=== PATIENT | female | born 1945 | race Caucasian/White ===

== ENCOUNTER → 2020-05-04 15:50 | Outpatient (CLI) | payer OTHER, SELFPAY ==
--- NOTE | 2020-05-04 15:53 | DI.ECHO.S_ITS ---
[facility] +---------+ : : [address] : : : : [id number] : : : : Phone: [phone]+ Echocardiogram Report + + :Name: JOSE RUIZ Study Date: 05/04/2020 Height: 66 in : :[facility] Weight: 253 lb : : Gender: Female BSA: 2.2 m2 : :: 1945 Age: 74 yrs BP: 144/90 mmHg: :Reason For Study: aortic stenosis : :Ordering Physician: David CliftonPerformed By: Huma Santana : :Referring: DAVID CLIFTON N : + + Interpretation Summary The left ventricle is normal in size and wall thickness. The left ventricular ejection fraction is normal. There are no focal wall motion abnormalities. The right ventricle is normal in size and function. A bioprosthetic valve is visualized in aortic position. The morphology is consistent with a TAVR valve. The valve is functioning normally with no perivalvular leak. -Compared to the prior echocardiogram, patient is now post TAVR with a normal functioning valve. Procedure: A two-dimensional transthoracic echocardiogram with color flow and Doppler was performed. The study quality was technically adequate. Comparison is made with the echocardiogram of 02/08/2019. The heart rate ranged between 83-96 bpm during the study. Left Ventricle: The left ventricle is normal in size and wall thickness. The ejection fraction is estimated to be 55-60%. The left ventricular ejection fraction is normal. There are no focal wall motion abnormalities. Diastolic parameters suggest a relaxation abnormality of the left ventricle, consistent with probable normal filling pressures. Right Ventricle: The right ventricle is normal in size and function. Atria: Both atria are normal in size. There is no Doppler evidence for an interatrial shunt. Mitral Valve: The mitral valve leaflets are slightly calcified. There is mild mitral annular calcification. There is no mitral regurgitation noted. Aortic Valve: There is a bioprosthetic aortic valve. There is probable normal prosthetic aortic valve function. The peak aortic velocity is 1.95 m/sec. The aortic valve mean gradient is 8 mmHg. No aortic regurgitation is present. Tricuspid Valve: The tricuspid valve is normal in structure and function. There is a trace or physiologic amount of tricuspid regurgitation. Pulmonary artery pressures cannot be estimated because of the lack of a measurable TR jet velocity but the IVC suggests a CVP of around 3 mmHg. Pulmonic Valve: The pulmonic valve is not well visualized. There is no pulmonic valvular regurgitation. Great Vessels: The aortic root is not well visualized but is probably normal size. The ascending aorta is moderately enlarged. The IVC is of normal diameter and collapses greater than 50% with a sniff. This suggests a low right atrial pressure of 3 mm Hg. Pericardium/ Pleura There is no pericardial effusion. There is an anterior echo-free space consistent with a fat pad. MMode/2D Measurements & Calculations LVIDd: 5.1 cm LVOT diam: 2.3 cm LVIDs: 3.6 cm asc Aorta Diam: 4.4 cm FS: 30.4 % IVSd: 1.1 cm LVPWd: 1.1 cm LV carter. diameter/BSA (cm/m^2): 2.3 LV sys. diameter/BSA (cm/m^2): 1.6 LA A2 area: 16.4 cm2 RA long axis: 4.8 cm LA A4 area: 11.8 cm2 RA area: 15.1 cm2 LA length (vol): 4.5 cm RA vol: 40.4 ml LA vol: 36.6 ml RA : 18.3 ml/m2 LA vol index: 16.6 ml/m2 IVC diam: 1.9 cm RVD1 (basal): 3.7 cm TAPSE: 1.8 cm Doppler Measurements & Calculations Ao V2 max: 190.2 cm/sec LVOT Max Mani: 77.9 cm/sec Ao V2 mean: 132.9 cm/sec LV V1 max P.4 mmHg Ao max P.5 mmHg LV V1 VTI: 12.9 cm Ao mean P.9 mmHg PATRICIA(I,D): 1.6 cm2 Ao V2 VTI: 34.3 cm PATRICIA(V,D): 1.7 cm2 sev ratio: 0.38 PATRICIA indexed to BSA (cm^2/m^2): 0.72 MV E max mani: 53.9 cm/sec PA V2 max: 75.3 cm/sec MV A max mani: 86.9 cm/sec PA V2 mean: 53.2 cm/sec MV E/A: 0.62 PA mean P.3 mmHg Med Peak E' Mani: 5.0 cm/sec PA pr(Accel): 41.3 mmHg E/E' med: 10.9 Lat Peak E' Mani: 6.3 cm/sec E/E' lat: 8.6 E/e' average: 9.7 MV dec time: 0.35 sec SV(LVOT): 54.7 ml Electronically signed by: Miles angel [place] Physician:05/05/2020 04:57 PM
== END ==
PROVIDERS: PCP Physician Assistant Medical; Referring Provider Nurse Practitioner; Visit Provider Nurse Practitioner
DX: I35.0 Nonrheumatic aortic (valve) stenosis (principal); I77.89 Other specified disorders of arteries and arterioles; Z95.2 Presence of prosthetic heart valve
CPT/HCPCS: 93306

== ENCOUNTER 2021-10-06 10:15 | Outpatient (RCR) | payer OTHER, SELFPAY | END 2021-10-06 12:15 | LOC: CAR 10:15 | PROVIDERS: PCP Physician Assistant Medical; Referring Provider Hospitalist; Visit Provider Hospitalist | DX: Z95.5 Presence of coronary angioplasty implant and graft (principal) | CPT/HCPCS: 93798 ==

== ENCOUNTER 2022-04-26 13:15 | Emergency (ER) | payer OTHER, SELFPAY ==
[2022-04-26 13:40] VITALS: BP 133/81; PULSE 96; RESP 17; TEMP 36.1; O2SAT 97; BMI 41.3
--- NOTE | 2022-04-26 17:44 | DI.RAD.S_ITS ---
PROCEDURE: XR ACUTE ABDOMEN SERIES INDICATIONS: h/o constipation / abd pain TECHNIQUE: One view chest and two views of the abdomen were acquired. COMPARISON: None. FINDINGS: Surgical changes and devices: None. Chest: Lungs are clear. Heart size is normal. No pleural effusions. No pneumoperitoneum. Abdomen: Bowel gas pattern is nonspecific. No significant colonic fecal loading. No suspicious calcifications. Visualized solid organ contours appear normal. Bones: No suspicious bony lesions. IMPRESSION: Nonspecific bowel gas pattern without definite evidence of obstruction. If patient's symptoms persist or worsen, consider CT scan of the abdomen pelvis for additional evaluation. Dictated by: Olga Benavides MD, PhD on 04/26/2022 at 17:01 Approved by: Olga Benavides MD, PhD on 04/26/2022 at 17:01
[2022-04-26 18:15] LABS: Add Manual Diff / Slide Review NO; Basophils Absolute Auto 0 /uL (0-100); Basophils Percent Auto 0.6 % (0-2); Eosinophils Absolute Auto 200 /uL (0-450); Eosinophils Percent Auto 3.2 % (2-4); Hematocrit 39.3 % (36-46); Hemoglobin 13.2 g/dL (12.0-16.0); Lymphocytes Absolute Auto 1200 /uL (1100-4500); Lymphocytes Percent Auto 16.3 % (25-40); Mean Corpuscular HGB Conc 33.6 % (30-36); Mean Corpuscular Hemoglobin 27.8 PG (26-34); Mean Corpuscular Volume 82.6 fL (80-100); Monocytes Absolute Auto 500 /uL (0-900); Monocytes Percent Auto 7.1 % (3-14); Neutrophils Absolute Auto 5400 /uL (1500-7000); Neutrophils Percent Auto 72.8 % (50-75); Platelet Count 264 X10^3/uL (150-400); Red Blood Cell Count 4.76 X10^6/uL (4.0-5.2); Red Cell Distribution Width 15.9 % (11.6-14.8); White Blood Cell Count 7.4 X10^3/uL (4.5-11.0)
[2022-04-26 18:17] LABS: Alanine Aminotransferase 18 IU/L (<35); Albumin 4.3 g/dL (3.5-5.0); Alkaline Phosphatase 93 U/L (38-126); Aspartate Aminotransferase 22 IU/L (14-36); BUN Creatinine Ratio 15.4 (6-22); Bilirubin Total 0.4 mg/dL (0.2-1.3); Blood Urea Nitrogen 20 mg/dL (7-17); Calcium 9.2 mg/dL (8.4-10.2); Carbon Dioxide 24 mmol/L (22-32); Chloride 108 mmol/L (98-107); Estimated Glomerular Filt Rate 42 mL/min (>60); Globulin 4.3 g/dL (1.7-4.1); Glucose 107 mg/dL (80-110); HEMOLYSIS < 15 (0-50); Lipase 68 U/L (23-300); Potassium 4.2 mmol/L (3.4-5.1); Sodium 142 mmol/L (137-145); Total Protein 8.6 g/dL (6.3-8.2)
--- NOTE | 2022-04-26 18:43 | DI.CT.S_ITS ---
PROCEDURE: CT ABDOMEN PELVIS W CON INDICATIONS: IV contrast only/lower abdominal pain TECHNIQUE: After the administration of intravenous contrast, axial sections acquired from the lung bases to the pubic symphysis. Coronal and sagittal reformats were performed. For radiation dose reduction, the following was used: automated exposure control, adjustment of mA and/or kV according to patient size. COMPARISON: None. FINDINGS: Image quality: Excellent. Lung bases: Left base atelectasis. Heart: Aortic valve device partially seen. ABDOMEN: Liver: Unremarkable. Gallbladder: Unremarkable Biliary ducts: Unremarkable. Pancreas: Pancreatic neck 9 mm cystic lesion. Spleen: Unremarkable. Adrenal Glands: Unremarkable. Kidneys and Ureters: Multiple simple renal cysts. Subcentimeter lesions are too small to characterize. Left renal atrophy. There are also parapelvic cysts. Stomach and Bowel: Posterior gastric diverticulum. Peritoneum: No abnormal intraperitoneal fluid. No free air. Ventral Wall: Small fat containing umbilical hernia. Abdominal Nodes: No retroperitoneal or mesenteric adenopathy by size criteria. Vessels: Mild aortoiliac atherosclerotic calcifications. PELVIS: Pelvic Organs: Ill-defined prominent hypodensity in the cervical region (5/56). Bladder: Unremarkable. Pelvic Nodes: No enlarged lymph nodes. Miscellaneous: No hernias are seen. Bones: No acute or suspicious osseous abnormality. Lumbosacral spondylosis. Some chronic appearing fracture deformities of the ribs. IMPRESSION: No acute abdominopelvic pathology. Stool burden is average. No bowel obstruction. Pancreatic neck 9 mm cystic lesion. This could be followed with MRI pancreas protocol in 1-2 years at clinical discretion, given patient's age. Ill-defined prominent hypodensity in the cervical region. This could be correlated non emergently with clinical exam and/or ultrasound. Other incidental and probably chronic findings above. Dictated by: Denver Roman M.D. on 04/26/2022 at 19:06 Approved by: Denver Roman M.D. on 04/26/2022 at 19:15
--- NOTE | 2022-04-26 18:44 | ED.ABDPAIN ---
HPI - Abdominal Pain General Chief Complaint: Abdominal Pain Stated Complaint: Constipation Abd Pain Time Seen by Provider: 04/26/22 16:43 Source: patient Mode of arrival: Ambulatory History of Present Illness HPI narrative: Patient here for lower abdominal discomfort cramping sensation for the past 3 days without any bowel movement. Patient states no prior history of constipation. Been a long time since colonoscopy. Did try [id number] oral laxatives without resolution. No urinary complaints. No fever chills. No back pain. Did start gabapentin 1 week ago. Has been under lot of stress as well. No changes in diet Related Data Home Medications Medication Instructions Recorded Confirmed aspirin 81 mg tablet,delayed ##0 12/30/17 release atorvastatin 10 mg tablet (Lipitor) 5 mg OR Q DAY ##0 12/30/17 fluoxetine 40 mg capsule (Prozac) ##0 12/30/17 Allergies Allergy/AdvReac Type Severity Reaction Status Date / Time ondansetron Allergy Unknown Verified 04/26/22 13:40 [From ZOFRAN ( HYDROCHLORIDE)] Sulfa (Sulfonamide Allergy Unknown Verified 04/26/22 13:40 Antibiotics) [SULFA (SULFONAMIDE ANTIBIOTICS)] Review of Systems Review of Systems Narrative: GENERAL: Denies chills, fatigue, malaise, fever, sweats. HEENT: Denies sinus pain, ear pain, sore throat RESPIRATORY: Denies dyspnea, cough CARDIOVASCULAR: Denies chest pain, palpitations GASTROINTESTINAL: Denies nausea, vomiting, positive for constipation and abdominal pain : Denies dysuria, frequency, hematuria MUSCULOSKELETAL: denies muscle or bony pain SKIN: Denies rash, skin lesions NEUROLOGIC: Denies weakness, numbness ROS Unobtainable: All systems reviewed & are unremarkable except as noted in HPI and below Patient History Social History Smoking Status: Smoker, status unknown Smoking Status: Smoker, status unknown alcohol intake frequency: holidays/special occasions only Substance Use Type: does not use Exam Narrative Exam Narrative: GENERAL: in no distress, not toxic not dyspneic HEAD: Normocephalic. EYES: Pupils equal round No scleral icterus. ENT: Mucous membranes moist. NECK: Trachea midline. CARDIOVASCULAR: Regular rate and rhythm without murmurs RESPIRATORY: Clear to auscultation. Breath sounds equal bilaterally. No wheezes, rales, or rhonchi. GASTROINTESTINAL: Abdomen soft, mild lower bilateral abdominal/pelvic tenderness. No peritoneal signs. Bowel sounds present. EXTREMITIES: No gross deformities. BACK: No flank tenderness. NEURO: AOx4. SKIN: Warm and dry PSYCH: Not anxious, is cooperative Initial Vital Signs Initial Vital Signs: Vital Signs Temperature 97.0 F L 04/26/22 13:40 Pulse Rate 96 H 04/26/22 13:40 Respiratory Rate 17 04/26/22 13:40 Blood Pressure 133/81 04/26/22 13:40 Pulse Oximetry 97 04/26/22 13:40 Oxygen Delivery Method 04/26/22 13:40 Course Course Course Narrative: No new issues during course of stay Orders Ordered: ED Orders 04/26/22 17:44 XR acute abdomen series Stat 04/26/22 17:45 CBC Auto Diff [Complete Blood Count AUTO DIFF] Stat CMP [Comprehensive Metabolic Panel] Stat Lipase Stat 04/26/22 18:43 CT abdomen pelvis w con Stat Discontinued Medications Sodium Chloride (Normal Saline 0.9%) 1,000 mls @ 1,000 mls/hr IV BOLUS ONE Stop: 04/26/22 19:42 Last Admin: 04/26/22 19:45 Dose: 1,000 mls/hr Documented By: BILL Magnesium Citrate (Magnesium Citrate 300 Ml Solution) 300 ml PO NOW ONE Stop: 04/26/22 20:04 Polyethylene Glycol/Electrolytes ([id number]/Sod Sulf,Bicarb,Cl/Kcl 4,000 Ml Solution) 2,000 ml PO NOW ONE Stop: 04/26/22 20:36 Last Admin: 04/26/22 20:51 Dose: 2,000 ml Documented By: BILL Reevaluation(s) Reevaluation #1: Reviewed results with patient. She desires to take GoLYTELY home and treat for constipation. Reviewed images and results with her. She does understand needs outpatient follow-up MRI Time: 20:56 Vital Signs Vital signs: Vital Signs - 8 hr 04/26/22 13:40 Temperature 97.0 F L Pulse Rate 96 H Respiratory Rate 17 Blood Pressure 133/81 Pulse Oximetry 97 Oxygen Delivery Method Room Air MDM - Abdominal Pain Differential Diagnosis Differential diagnosis: Likely abdominal pain, acute appendicitis, calculus of kidney, constipation, diverticulitis, pancreatitis and small bowel obstruction Lab Data Result diagrams: 04/26/22 17:45 08/09/22 17:45 Labs: Lab Results 04/26/22 04/26/22 Range/Units 17:45 17:45 WBC 7.4 (4.5-11.0) X10^3/uL RBC 4.76 (4.0-5.2) X10^6/uL Hgb 13.2 (12.0-16.0) g/dL Hct 39.3 (36-46) % MCV 82.6 (80-100) fL MCH 27.8 (26-34) PG MCHC 33.6 (30-36) % RDW 15.9 H (11.6-14.8) % Plt Count 264 (150-400) X10^3/uL Neut % (Auto) 72.8 (50-75) % Lymph % (Auto) 16.3 L (25-40) % [place] % (Auto) 7.1 (3-14) % Eos % (Auto) 3.2 (2-4) % Baso % (Auto) 0.6 (0-2) % Neut # (Auto) 5400 (7873-8109) /uL Lymph # (Auto) 1200 (6209-8131) /uL [place] # (Auto) 500 (0-900) /uL Eos # (Auto) 200 (0-450) /uL Baso # (Auto) 0 (0-100) /uL Sodium 142 (137-145) mmol/L Potassium 4.2 (3.4-5.1) mmol/L Chloride 108 H (98-107) mmol/L Carbon Dioxide 24 (22-32) mmol/L BUN 20 H (7-17) mg/dL Creatinine 1.30 H (0.52-1.04) mg/dL Estimated GFR 42 L (>60) mL/min BUN/Creatinine Ratio 15.4 (6-22) Glucose 107 (80-110) mg/dL Calcium 9.2 (8.4-10.2) mg/dL Total Bilirubin 0.4 (0.2-1.3) mg/dL AST 22 (14-36) IU/L ALT 18 (<35) IU/L Alkaline Phosphatase 93 (38-126) U/L Total Protein 8.6 H (6.3-8.2) g/dL Albumin 4.3 (3.5-5.0) g/dL Globulin 4.3 H (1.7-4.1) g/dL Albumin/Globulin Ratio 1.0 (1.0-2.8) Lipase 68 (23-300) U/L Imaging Data CT scan - abdomen/pelvis: Radiologist's Impression: [address] [address] [address] Scan Report Signed Patient: Zoraida Flores MR#: [id number] : 1945 Acct:[id number] Age/Sex: 76 / F Date of Service: 04/26/22 Loc: ED Accession Number: [id number] ?? Procedure: CT abdomen pelvis w con Ordering Provider: Mik Hernandez MD PROCEDURE:? CT ABDOMEN PELVIS W CON ? INDICATIONS:? IV contrast only/lower abdominal pain ? TECHNIQUE:? After the administration of intravenous contrast, axial sections acquired from the lung bases to the pubic symphysis.? Coronal and sagittal reformats were performed.? For radiation dose reduction, the following was used:? automated exposure control, adjustment of mA and/or kV according to patient size.? ? COMPARISON:? None. ? FINDINGS:? Image quality:? Excellent.? ? Lung bases:? Left base atelectasis. Heart:? Aortic valve device partially seen. ? ABDOMEN: Liver:? Unremarkable.? ? Gallbladder:? Unremarkable Biliary ducts:? Unremarkable.? ? Pancreas:? Pancreatic neck 9 mm cystic lesion. Spleen:? Unremarkable.? ? Adrenal Glands:? Unremarkable.? ? Kidneys and Ureters:? Multiple simple renal cysts.? Subcentimeter lesions are too small to characterize.? Left renal atrophy.? There are also parapelvic cysts. ? Stomach and Bowel:? Posterior gastric diverticulum. Peritoneum:? No abnormal intraperitoneal fluid.? No free air.? ? Ventral Wall:? Small fat containing umbilical hernia. Abdominal Nodes:? No retroperitoneal or mesenteric adenopathy by size criteria.? Vessels:? Mild aortoiliac atherosclerotic calcifications. ? PELVIS: Pelvic Organs:? Ill-defined prominent hypodensity in the cervical region (). Bladder:? Unremarkable.? ? Pelvic Nodes: No enlarged lymph nodes.? Miscellaneous: No hernias are seen. ? ? ? Bones:? No acute or suspicious osseous abnormality.? Lumbosacral spondylosis.? Some chronic appearing fracture deformities of the ribs. ? ? IMPRESSION:? No acute abdominopelvic pathology.? Stool burden is average.? No bowel obstruction. ? Pancreatic neck 9 mm cystic lesion.? This could be followed with MRI pancreas protocol in 1-2 years at clinical discretion, given patient's age. ? Ill-defined prominent hypodensity in the cervical region.? This could be correlated non emergently with clinical exam and/or ultrasound.? ? Other incidental and probably chronic findings above.? ? Dictated by: Denver Roman M.D. on 04/26/2022 at 19:06 ? ? Approved by: Denver Roman M.D. on 04/26/2022 at 19:15 ? Abdominal x-ray: Radiologist's Impression: [address] [address] XRay Report Signed Patient: Zoraida Flores MR#: [id number] : 1945 Acct:[id number] Age/Sex: 76 / F Date of Service: 04/26/22 Loc: ED Accession Number: [id number] ?? Procedure: XR acute abdomen series Ordering Provider: Maude Moss D.O. PROCEDURE:? XR ACUTE ABDOMEN SERIES ? INDICATIONS:? h/o constipation / abd pain ? TECHNIQUE:? One view chest and two views of the abdomen were acquired.? ? COMPARISON:? None. ? FINDINGS:? ? Surgical changes and devices:? None.? ? Chest:? Lungs are clear.? Heart size is normal.? No pleural effusions.? No pneumoperitoneum.? ? Abdomen:? Bowel gas pattern is nonspecific.? No significant colonic fecal loading.? No suspicious calcifications.? Visualized solid organ contours appear normal.? ? Bones:? No suspicious bony lesions.? ? IMPRESSION:? Nonspecific bowel gas pattern without definite evidence of obstruction.? If patient's symptoms persist or worsen, consider CT scan of the abdomen pelvis for additional evaluation. ? ? Dictated by: Olga Benavides MD, PhD on 04/26/2022 at 17:01 ? ? Approved by: Olga Benavides MD, PhD on 04/26/2022 at 17:01 ? MDM Narrative Medical decision making narrative: Appropriate for discharge home. Exam and laboratory studies are reassuring. Patient understood to follow up with primary care for outpatient MRI of the pancreas. It is incidental finding. Likely constipation from recent stressors as well as medication changes including gabapentin. Discharge Plan Departure Patient Disposition: Home Clinical Impression: Constipation Instructions: DI for Constipation Activity Restrictions/Additional Instructions: Please use GoLYTELY as instructed by nurse daily for constipation. Please see your family doctor this week for scheduling outpatient MRI for your pancreas for the incidental finding we found today on CT scan. Keep well hydrated. May continue home medications. Return if worse if any questions or concerns. Prescriptions: No Action fluoxetine [Prozac] 40 MG capsule Qty: 0 atorvastatin [Lipitor] 10 MG tablet 5 mg OR Q DAY Qty: 0 aspirin 81 MG tablet,delayed release (DR/EC) Qty: 0 Referrals: Madison Rinaldi PA-C [Primary Care Provider] - Visit Report Forms: Patient Portal/API
[2022-04-26] MEDS: SODIUM CHLORIDE 0.9% 1,000 ML 1000 ML IV (19:45)
[2022-04-26] MEDS: PEG3350/SOD SULF,BICARB,CL/KCL 4,000 ML SOLUTION 2000 ML PO (20:51)
== END 2022-04-26 21:19 | disposition home or self-care (01) ==
PROVIDERS: Emergency Medicine; Emergency Provider Emergency Medicine; PCP Physician Assistant Medical
DX: K59.00 Constipation, unspecified (principal)
CPT/HCPCS: 36415; 74022; 74177; 80053; 83690; 85025; 99284; Q9967

== ENCOUNTER → 2022-05-03 10:34 | Outpatient (CLI) | payer OTHER, SELFPAY ==
--- NOTE | 2022-05-03 | DI.RAD.S_ITS ---
PROCEDURE: FL BARIUM SWALLOW INDICATIONS: Gastric diverticulum COMPARISON: [facility], CT, CT ABDOMEN PELVIS W CON, 04/26/2022, 18:52. FINDINGS: Function: Study is slightly limited due to poor patient mobility. Tertiary contractions are noted in mid to distal esophageal wall. No significant gastroesophageal reflux. Morphology: Air-contrast images demonstrate normal mucosal morphology. Single contrast views show no esophageal strictures, extrinsic mass effects, or diverticula. Limited images of the stomach demonstrate small diverticulum over dorsal aspect of proximal gastric lumen just distal to gastroesophageal junction which is also seen on previous CT study. IMPRESSION: 1. Tertiary contractions seen in mid to distal esophageal wall muscles suggestive of esophageal motility disorder. 2. No intraluminal filling defect, or gross ulceration or esophageal wall diverticulum. No focal stricture. Small gastric wall diverticulum which was also seen on previous CT study. Dictated by: Lucho Da Silva M.D. on 05/03/2022 at 13:00 Approved by: Lucho Da Silva M.D. on 05/03/2022 at 13:04
== END ==
PROVIDERS: PCP Physician Assistant Medical; Referring Provider Physician Assistant Medical; Visit Provider Physician Assistant Medical
DX: K31.4 Gastric diverticulum (principal)
CPT/HCPCS: 74220

== ENCOUNTER → 2023-05-11 | Outpatient (CLI) | payer OTHER, SELFPAY ==
--- NOTE | 2023-05-12 19:03 | DI.NM.S_ITS ---
DATE OF SERVICE: 05/11/2023 PROCEDURE PERFORMED: Pharmacologic vasodilator stress and rest myocardial perfusion imaging with gating to assess ejection fraction and regional wall motion. ORDERING PROVIDER: Madison Rinaldi PA-C. INDICATIONS: The patient is a 77-year-old female with a history of TAVR with known mild coronary disease who presents with atypical chest discomfort. PHARMACOLOGIC VASODILATOR STRESS: Per protocol, 0.4 mg of regadenoson was infused with a normal hemodynamic response. She had no chest discomfort and only minimal dyspnea. Her resting ECG shows sinus rhythm with a left anterior fascicular block but normal ST segments and there are no significant ST-segment shifts or arrhythmias with stress except for an occasional PAC. Per protocol, 25.1 millicuries of technetium-99m Myoview was injected and she was imaged 10 minutes later using a gated SPECT acquisition protocol. The day prior while at rest, she had been injected with 26.1 millicuries of technetium-99m Myoview and was imaged 20 minutes later, again using a quantitated gated SPECT protocol. FINDINGS: 1. Raw data: There are prominent breast shadows that clearly produce some attenuation artifact. Unfortunately, the patient was unable to lie prone to assess for this. The lung-heart ratio is mildly elevated at 0.43, which can be a sign of pulmonary congestion, although is not visually evident and thus is nonspecific. The TID ratio is normal at 0.98. 2. Quantitated gated SPECT: Post-stress ejection fraction is 79% without any focal wall motion abnormality. Resting ejection fraction is 74% with a normal resting end-diastolic volume of 96 mL. 3. Myocardial perfusion imaging: Post-stress supine images shows a normal perfusion pattern without any significant perfusion defects. There are no prone images for comparison. The resting images show a similar perfusion pattern without any obvious areas of improvement. IMPRESSION: 1. Normal myocardial perfusion study. 2. No evidence of myocardial ischemia or previous myocardial infarction. 3. Normal left ventricular systolic function without any focal wall motion abnormality. While the lung-heart ratio is mildly elevated, which can be an indication of pulmonary congestion, it is not visually evident and is nonspecific. Clinical correlation is recommended. 4. No angina or ECG evidence of ischemia with pharmacologic vasodilator stress. She had rare PACs but no other arrhythmias. SandraLanaZoraida - RS/fn/ata doc#: [id number]/job#: [id number] dd: 05/12/2023 16:49:00 dt: 05/12/2023 18:50:00 DICTATING MD/COPIES TO: Lexx Victoria MD; JERMAINE Ca COPIES MNE: GEORGE;
== END ==
LOC: NUCM 10:03
PROVIDERS: PCP Physician Assistant Medical; Referring Provider Physician Assistant Medical; Visit Provider Physician Assistant Medical
DX: R07.9 Chest pain, unspecified (principal)
CPT/HCPCS: 78452; 93017; A9502; J2785

== ENCOUNTER 2024-01-25 14:08 | Outpatient (CLI) | payer OTHER, SELFPAY ==
[2024-01-25] VITALS (8 sets, daily range): BP systolic 130–149; BP diastolic 59–77; PULSE 84–93; RESP 12–21; TEMP 36.9; O2SAT 95–100
--- NOTE | 2024-01-25 15:00 | DI.RAD.S_ITS ---
PROCEDURE: PAIN L INTERLAMINAR/CAUDAL INJ INDICATIONS: L3-4 translaminar LUANA COMPARISON: None. FINDINGS: Fluoroscopic spot filming was performed to verify placement of spinal needles at the L3-4 level(s), as labeled on the films. Appropriate location(s) of the needle tip(s) was confirmed by injection of iodinated contrast. IMPRESSION: Needle and contrast localization at L3-4. Dom go Dictated by: Luli Carvajal M.D. on 01/26/2024 at 15:16 Approved by: Luli Carvajal M.D. on 01/26/2024 at 15:22
[2024-01-25] MEDS: MIDAZOLAM 2 MG/2 ML VIAL IV (15:48)
[2024-01-25] MEDS: iopamidoL 15 ML VIAL 3 ML INJ (15:50)
[2024-01-25] MEDS: BETAMETHASONE 30 MG/5 ML MDV 6 MG INJ (15:51)
[2024-01-25] MEDS: BUPIVACAINE 0.25% (PF) VIAL 2 ML INJ (15:51)
[2024-01-25] MEDS: DEXAMETHASONE 10 MG/ML VIAL INJ (15:51)
--- NOTE | 2024-01-25 16:03 | P.PCN_ITS ---
Date/Time/Diagnoses Date of procedure: 01/25/24 Time of procedure: 16:03 Pre-procedure diagnosis: 1. HNP WITH RADICULAR FEATURES, 2. MULTILEVEL CENTRAL STENOSIS, Post-procedure diagnosis: same Procedure Notes Procedure: 1. FLUOROSCOPICALLY GUIDED CONTRAST CONTROLLED INTERLAMINAR EPIDURAL STEROID INJECTION - L3/4 Indications: Zoraida is referred by JAKE Rinaldi for treatment of Bilateral Foraminal Stenosis L>R LE symptoms. Physician: Lexx Everett Total Fluoroscopy time (seconds): 9 Total sedation minutes: 11 Complications: none Procedure in detail & Post-procedure care: FINDINGS Multilevel Central Spinal Stenosis with Nerve Root Compression DESCRIPTION OF PROCEDURE Fluoroscopically guided, contrast-controlled L3/4 translaminar epidural steroid injection. Following review of allergy and review of potential side effects and complications, including, but not necessarily limited to, infection, allergic reaction, local tissue breakdown, temporary as well as permanent nerve injury, paralysis, stroke and possible , the patient indicated that the patient understood and agreed to proceed. An informed consent document was signed by the patient, witnessed by a nurse, and placed in the patient's chart. Additionally, other treatment options including modalities, medications, and physical therapy were reviewed with the patient. After review of previous anaesthesic history and IV conscious sedation the patient was deemed safe to proceed with today?s procedure with IV conscious sedation as ASA class II designation. Safety time-out was performed to confirm p atient ID, procedure to be performed and site of procedure. IV sedation was accomplished with a combination of 2mg of Versed was administered by the RN after DO order, titrated to patient comfort during the course of the procedure while the patient remained responsive to all verbal commands. In the prone position, following sterile prep and drape of the lumbar region, the L3/4 translaminar space was identified fluoroscopically. The skin was anesthetized via a 25-gauge, 1.5-inch needle with 1% lidocaine solution. At this point, a 22-gauge short bevel spinal needle was atraumatically introduced and advanced under fluoroscopic guidance into the region of the L3/4 translaminar space. Depth was confirmed on lateral view. Radiological data, including multiple fluoroscopic views of the lumbar spine, reveal a spinal needle at the L3/4 translaminar space. Lateral views then show placement of the needle in the epidural space. Subsequent views show contrast material flowing superiorly and inferiorly in the epidural space. No vascular or intrathecal uptake is observed. At this point, using loss of resistance technique with saline and air, the epidural space was entered. This was confirmed following negative aspiration with injection of approximately 1.5 cc of Isovue 200, showing excellent epidural flow without vascular or intrathecal uptake. At this point, 1cc of 1% lidocaine solution combined with 2cc or 10mg of dexamethasone and 6mg of betamethasone was injected without incident. The patient tolerated the procedure well without signs or symptoms of complications prior to transfer to the recovery area continued monitoring without incident. The patient was then transferred to the recovery area where they were observed for an appropriate period of time after the injection. The patient reported a VAS score of 6 prior to the procedure and a post- procedure VAS of 0. POST OP INSTRUCTIONS The patient was provided a Pain Log to continue to record their response to the target-specific procedure prior to follow-up visit with their referring physician. Additionally, specific post-injection care instructions and a contact number to our office were provided if concerns arise regarding possible complications associated with the procedure are suspected.
== END 2024-01-25 16:18 | disposition home or self-care (01) ==
PROVIDERS: PCP Physician Assistant Medical; Referring Provider Physical Medicine & Rehabilitation; Visit Provider Physical Medicine & Rehabilitation
DX: M51.16 Intervertebral disc disorders with radiculopathy, lumbar region (principal); M48.061 Spinal stenosis, lumbar region without neurogenic claudication
CPT/HCPCS: 62323; 99152; J0702; J1100; J2250; J3490

== ENCOUNTER 2025-05-21 10:40 | Outpatient (CLI) | payer OTHER, SELFPAY ==
[2025-05-21 10:58] VITALS: BP 138/68; PULSE 76; RESP 12; TEMP 36.7; O2SAT 96
[2025-05-21 11:13] VITALS: BP 147/68; PULSE 73; RESP 18; O2SAT 94
[2025-05-21] MEDS: LIDOCAINE 1% (PF) 5 ML 10 ML INJ (11:16)
[2025-05-21 11:18] VITALS: BP 146/58; PULSE 72; RESP 14; O2SAT 93
[2025-05-21 11:25] VITALS: BP 130/63; PULSE 80; RESP 16; O2SAT 98
--- NOTE | 2025-05-21 13:56 | PM.PROC.IR.1 ---
Date/Time/Diagnoses Date of procedure: 04/23/25 Time of procedure: 10:45 Pre-procedure diagnosis: Lumbar stenosis, radiculopathy Post-procedure diagnosis: same Procedure Notes Procedure: Interlaminar epidural steroid injection L4-5 Indications: Lumbar stenosis, radiculopathy Physician: Jhonny Bobo Total sedation minutes: 0 Complications: none Procedure in detail & Post-procedure care: Patient is here for the planned procedure today as noted. No significant change since the last office visit. For additional clinical scenario please see those office notes. Focused exam: Vital signs reviewed as charted on intake. Gen: Well developed. No acute distress. CV: RRR, no M/R/G Chest: Non-labored breathing, CTAB. Psych: Alert and well-oriented. Mood/Affect: normal. Patient suitable for the planned procedure today: Yes === The following procedure was performed in the office today: Lumbar Epidural Steroid Injection with fluoroscopic guidance - Interlaminar approach (24954) Levels Treated: L4-5 Approach: interlaminar Soft tissue: [1% lidocaine 2 mL] Test dose: [1% lidocaine 1 mL] Injectate: 0.75 mL of Depo-Medrol (80mg/mL) in 1.25 mL 1% lidocaine and 1 mL normal saline Fluoroscopy Agent: Isovue 300-M 1.5 mL Notes: We had discussed doing the procedure with light IV sedation with Versed, however revisiting the topic today patient is amenable to proceed without sedation. I am confident this will be fine. We proceeded and indeed patient tolerated the procedure quite well. 4.5 in 20 gauge Touhy needle was utilized and adequate. Right paramedian space was targeted. Preprocedure pain 2/10, postprocedure pain 0/10. Procedure: After discussing the risks, benefits, and alternatives to the procedure, the patient expressed understanding and wished to proceed. The risks include but are not limited to infection, allergic reaction, nerve damage, stroke, paralysis, epidural hematoma, syncope, headache, respiratory or cardiac arrest, spinal cord injury, and scar formation. Informed consent was obtained and all patient questions were answered. The patient was brought to the procedure suite and placed in the prone position. A pre-procedural pause was conducted to verify: correct patient identity, procedure to be performed and as applicable, correct side and site, correct patient position, and any special requirements. Using a paramedian approach from the side noted above, the region overlying the target was localized under fluoroscopic visualization and the soft tissues overlying this structure were infiltrated with the anesthetic listed above. With fluoroscopic guidance, a #20 gauge Tuohy needle (unless otherwise noted) was inserted into the epidural space using a paramedian approach. The epidural space was localized utilizing intermittent multiplanar fluoroscopic guidance and loss of resistance technique. After negative aspiration, the contrast noted above was injected into the epidural space and the flow of contrast was observed, confirming epidural spread without evidence of intravascular or intrathecal spread. Multi-planar radiographs were obtained for documentation purposes. A test dose of lidocaine was injected into the above noted epidural space, and the patient was observed for 30-60 seconds. No sensory deficits were reported and normal lower extremity motor function was noted. Subsequently, the injectate as noted above was administered into the level noted above. The patient tolerated the procedure well and was discharged after an appropriate period of observation. If there are any complications, the patient was instructed to call us. The patient is to follow-up with the requesting provider in 2-3 weeks. This note was compiled using voice recognition software and therefore may contain typos. Please contact the author with any questions or concerns.
== END 2025-05-21 11:35 | disposition home or self-care (01) ==
LOC: RAD 10:41
PROVIDERS: PCP Physician Assistant Medical; Referring Provider Physical Medicine & Rehabilitation; Visit Provider Physical Medicine & Rehabilitation
DX: M48.061 Spinal stenosis, lumbar region without neurogenic claudication (principal); M54.16 Radiculopathy, lumbar region
CPT/HCPCS: 62323; J1010